=== PATIENT | male | born 1970 | race African-American/Black ===

== ENCOUNTER 2018-01-13 11:40 | Outpatient (CLI) | END 2018-01-13 11:41 | disposition home or self-care (01) | LOC: FCC-LAB 11:40 | PROVIDERS: ATTEND Family Medicine | DX: E11.9 Type 2 diabetes mellitus without complications (principal); I10 Essential (primary) hypertension; E78.2 Mixed hyperlipidemia; E55.9 Vitamin D deficiency, unspecified; Z87.19 Personal history of other diseases of the digestive system | CPT/HCPCS: 36415; 80053; 80061; 82043; 82306; 83037; 85025 ==

== ENCOUNTER 2018-04-18 12:37 | Outpatient (CLI) ==
--- NOTE | 2018-04-21 09:43 | HOLTER ---
PATIENT INFORMATION AND COMMENTS Attending Physician: DR. MABEL GUTIERREZ Indications: SYNCOPE, COLLAPSE __ Patient Medications: INSULIN, GLARGINE, VANCOMYCIN, CYCLABENZAPRINE, PREDNISONE , ATORVASTATIN, LISINOPRIL, CIALIS __ Pre-procedure Summary: Protocol: Standard Heart Rate Started: 04/18/18 1326 Minimum: 62 BPM Weight: 206 LBS Ended: 04/19/18 1308 Maximum: 141 BPM Height: 67" Duration: 23 HRS 42 MIN Average: 87 BPM _ INTERPRETATIONS/OBSERVATIONS: 1. BASIC RHYTHM: SINUS, RATE 60 BPM TO 140 BPM, AVERAGE 87 BPM 2. RARE TO INFREQUENT PVC'S--ISOLATED 3. RARE PAC'S--ISOLATED 4. NO ST-T WAVE CHANGES FROM BASELINE 5. NO CORRELATION WITH ACTIVITY LOG. MTDD
== END 2018-04-18 12:38 | disposition home or self-care (01) ==
LOC: CAR 12:37
PROVIDERS: ATTEND Family Medicine
DX: R55 Syncope and collapse (principal)
CPT/HCPCS: 93227

== ENCOUNTER 2018-05-28 11:36 | Outpatient (CLI) | END 2018-05-28 11:37 | disposition home or self-care (01) | LOC: FCC-LAB 11:36 | PROVIDERS: ATTEND Family Medicine | DX: E11.9 Type 2 diabetes mellitus without complications (principal) | CPT/HCPCS: 36415; 83037 ==

== ENCOUNTER 2018-07-08 14:58 | Outpatient (CLI) | END 2018-07-08 14:59 | disposition home or self-care (01) | LOC: CAR 14:58 | PROVIDERS: ATTEND Psychiatry & Neurology Sleep Medicine | DX: G47.33 Obstructive sleep apnea (adult) (pediatric) (principal) | CPT/HCPCS: 95810 ==